=== PATIENT | male | born 1955 | race Caucasian/White ===

== ENCOUNTER → 2017-05-10 | Outpatient (CLI) | payer OTHER ==
[2017-05-10 16:32] LABS: BASO % 0.2 %; BASO ABS # 0.02 K/uL (0-0.2); COMPLETE YES; EOS % 4.7 %; HEMATOCRIT 42.6 % (42-52); IG% 0.1 %; LYMPH % 25.2 %; MEAN CELL VOLUME 92.6 fL (80-100); MEAN CORPUSCULAR HEMOGLOBIN 31.5 pg (25-34); MEAN PLATELET VOLUME 10.3 fL (7.4-10.4); NEUT % 63.8 %; PLATELET COUNT 203 K/uL (130-400); WHITE BLOOD COUNT 8.34 K/uL (4.8-10.8)
[2017-05-10 16:40] LABS: PROTHROMBIN TIME (PATIENT) 10.9 SECONDS (9.0-12.0)
[2017-05-10 17:00] LABS: POTASSIUM 4.2 mmol/L (3.5-5.1)
== END | disposition home or self-care (01) ==
LOC: C.CPL 15:07
DX: Z01.818 Encounter for other preprocedural examination (principal)

== ENCOUNTER → 2017-05-30 | Day surgery (SDC) | payer OTHER ==
[2017-05-18 07:45] VITALS: Ht 170.2 cm; Wt 111.4 kg
[~2017-05-30] VITALS: Ht 170.2 cm; Wt 111.4 kg
[~2017-05-30] MED LIST: ASPI81TA28 PO; ATOR-24 PO; ATROPINE SULFATE 0.1 MG/ML 5ML SYR IV PRN; CYAN10005 PO; DEXAMETHASONE SOD INJ 4 MG/ML VIAL ONE; EpHEDrine SULFATE INJ 50 MG/ML AMP IV PRN; EpINEphrine INJ 1MG/ML AMP 1 MG/ML AMP ONE; FENTANYL CITRATE INJ 50 MCG/1 ML 2 ML VIAL IV PRN; FENTANYL CITRATE INJ 50 MCG/1 ML 2 ML VIAL ONE; GABA-113 PO; GLUCTAB54 PO; HYDROCODONE/APAP 2.5MG/108MG ELIX 5 ML UDP PO PRN; LACTATED RINGER'S 1000ML 1,000 ML IV SCH; MAGN250T3 PO; MIDAZOLAM HCL 1 MG/ML 2ML VIAL ONE; NAPR-1169 PO; OMEG10007 PO; ONDANSETRON INJ 2 MG/ML 2 ML VIAL IV PRN; ONDANSETRON INJ 2 MG/ML 2 ML VIAL ONE; PROPOFOL IV EMULSION 10 MG/ML 20 ML VIAL IV ONE; PRT/20 PO
--- NOTE | 2017-05-30 09:16 | History & Physical Bridge - [place] ---
H&P Re-Evaluation Bridge Note: I have examined the patient, reviewed the History & Physical and in the interval since the performance of the History & Physical I have noted the following changes of clinical significance: No changes noted
--- NOTE | 2017-05-30 11:02 | [facility] Operative Report ---
Operative Report Operative Date May 30, 2017. Pre-Operative Diagnosis Vocal Cord Lesion; Hoarseness Post-Operative Diagnosis Same Procedure(s) Performed DIRECT MICROLARYNGOSCOPY WITH RIGHT TRUE VOCAL FOLD BIOPSY Surgeon Dr. Daniels Plating Technician Surgeon(s) None Estimated Blood Loss 5ML Findings RAISED PAPILLOMATOUS LESION INVOLVING THE POSTERIOR 2/3 OF THE RIGHT TRUE VOCAL FOLD Specimens FS#1 - Right True Vocal Cord Biopsy - sent for frozen section A. Right True Vocal Cord Biopsy - sent for permanent specimen I attest to the content of the Intraoperative Record and any orders documented therein. Any exceptions are noted below.
--- NOTE | 2017-05-30 11:04 | Discharge Instructions ---
Discharge Instructions Date of Service May 30, 2017. Admission Reason for Admission: Lesion Right Vocal Fold Discharge Discharge Diagnosis / Problem: SAME Discharge Goals Goal(s): Diagnostic testing, Therapeutic intervention Activity Recommendations Activity Limitations: as noted below VOICE REST FOR 2-3 DAYS . Current Hospital Diet Patient's current hospital diet: Regular Diet Discharge Diet Recommended Diet: Regular Diet Procedures Procedures Performed: DIRECT MICROLARYNGOSCOPY WITH RIGHT TRUE VOCAL FOLD BIOPSY Pending Studies Studies pending at discharge: no Medical Emergencies . Who to Call and When: Medical Emergencies: If at any time you feel your situation is an emergency, please call 911 immediately. . Non-Emergent Contact Non-Emergency issues call your: Surgeon . . "Provider Documentation" section prepared by Denilson Daniels. . VTE Core Measure Inpt VTE Proph given/why not?: SCD's
--- NOTE | 2017-05-30 11:42 | OPERATIVE REPORT ---
DATE OF OPERATION: 05/30/2017 PREOPERATIVE DIAGNOSES: 1. Hoarseness. 2. Right true vocal fold lesion. POSTOPERATIVE DIAGNOSES: 1. Hoarseness. 2. Right true vocal fold lesion. PROCEDURE: Direct microlaryngoscopy with biopsies of right true vocal fold lesion. SURGEON: Denilson Daniels MD ANESTHESIA: General endotracheal. ESTIMATED BLOOD LOSS: 5 mL. FINDINGS: Raised papillomatous lesion involving the posterior two-thirds of the right true vocal fold. SPECIMENS: Right true vocal fold biopsy for both frozen and permanent pathologic assessment. COMPLICATIONS: None. INDICATIONS FOR THE PROCEDURE: The patient is a 62-year-old male with a history of hoarseness for approximately 6-8 weeks, who was found on flexible laryngoscopy to have an abnormal raised lesion involving the posterior two-thirds of his right true vocal fold. In addition, he had findings consistent with laryngopharyngeal reflux. He was scheduled for the above-mentioned procedure on an outpatient elective basis. DESCRIPTION OF PROCEDURE: After informed consent had been obtained from the patient, the patient was wheeled to the operating room and placed on the operating table in the supine position. Monitors were placed. After induction of general endotracheal anesthesia with a size 6 endotracheal tube, the table was turned 90 degrees and the patient was placed in the sniffing position. A tooth guard was placed over the maxillary dentition and the operating laryngoscope was carefully inserted and used to inspect the oral cavity, oropharynx, hypopharynx, and larynx. There was a papillomatous lesion involving the posterior two-thirds of the right true vocal fold. Photodocumentation of the lesion was performed using the 0-degree bear telescope. Using the operating microscope and a 400-mm lens, straight Gurwinder-Cut forceps were used to take multiple biopsies of the right true vocal fold lesion, which were sent off for both frozen and permanent pathological assessment. A topical 1:1000 epinephrine pledgets placed over the right true vocal fold for hemostasis. After several minutes, the pledget was removed. An LTA was then administered. The operating microscope was then carefully withdrawn. The hypopharynx and larynx were suctioned. Frozen section diagnosis revealed papillomatous lesion, worrisome for a differentiated squamous cell carcinoma, although they could not call true invasion on the frozen specimens. They will defer to the permanent pathological slides. This marked the end of the case. The patient tolerated the procedure well. There were no complications. All the instrumentation and tooth guard were removed from the patient. The patient was extubated and transferred to recovery room in stable condition. I attest to the content of the Intraoperative Record and any orders documented therein. Any exception s are noted below.
[2017-05-30 11:55] VITALS: TEMP 36.7
[2017-05-30 12:21] VITALS: BP 129/71; PULSE 58; O2SAT 96
--- NOTE | 2017-05-30 12:32 | Anesthesia Progress Nt - [facility] ---
Anesthesia Post Op Note Date & Time May 30, 2017 at 12:32 Vital Signs Pain Intensity: 0 Vital Signs Past 12 Hours Date Time Temp Pulse Resp B/P (MAP) Pulse Ox O2 Delivery O2 Flow Rate FiO2 05/30/17 12:21 58 16 129/71 (90) 96 Room Air 05/30/17 11:55 36.7 60 16 134/70 (91) 96 Room Air 05/30/17 11:47 36.6 61 16 129/82 96 Room Air 05/30/17 11:41 55 6 05/30/17 11:41 55 6 135/70 98 05/30/17 11:36 56 5 96 05/30/17 11:36 57 5 05/30/17 11:35 126/75 05/30/17 11:31 61 8 05/30/17 11:31 61 8 136/77 98 05/30/17 11:26 65 23 05/30/17 11:26 65 23 99 05/30/17 11:25 164/92 05/30/17 11:21 65 15 05/30/17 11:21 65 15 98 05/30/17 11:20 163/83 05/30/17 11:16 68 15 99 05/30/17 11:16 68 15 05/30/17 11:15 155/86 05/30/17 11:11 166/86 05/30/17 11:11 36.3 69 16 166/56 99 Humidified Oxygen 6 Mask 05/30/17 08:09 36.5 58 18 159/82 (107) 96 Room Air Notes Mental Status: alert / awake / arousable, participated in evaluation Pt Amnestic to Procedure: Yes Nausea / Vomiting: adequately controlled Pain: adequately controlled Airway Patency, RR, SpO2: stable & adequate BP & HR: stable & adequate Hydration State: stable & adequate Anesthetic Complications: no major complications apparent
== END | disposition home or self-care (01) ==
LOC: X.SURG 07:55
DX: C32.0 Malignant neoplasm of glottis (principal); J38.3 Other diseases of vocal cords; R49.0 Dysphonia; Z87.891 Personal history of nicotine dependence; Z79.82 Long term (current) use of aspirin; Z79.899 Other long term (current) drug therapy